=== PATIENT | female | born 1975 ===

== ENCOUNTER 2016-12-26 19:58 | Emergency (ER) | payer SELFPAY ==
[2016-12-26 20:08] VITALS: BP 112/74; PULSE 79; RESP 18; TEMP 99.1; O2SAT 99
--- NOTE | 2016-12-26 23:03 | ED PDOC ---
Arrival/HPI - General Chief Complaint: Trauma Time Seen by Provider: 12/26/16 22:33 Historian: Patient - History of Present Illness Narrative History of Present Illness (Text): 12/26/16 22:36 41-year-old female presents today with a 2-3 month history of left sided body pain . Patient denies trauma or injury. Patient denies fevers or chills. Patient denies difficulty breathing. Patient describes the pain as an achy pain throughout the entire left side of her body from the left side of the neck to the left upper and lower back. pt denies cough or SOB. no vomiting/diarrhea. no dizziness. pt states she has been taking advil at home with some relief. denies fever/chills. pt states pain radiates throughout the entire left side of her body from the left side of her neck into her hip. no abdominal pain. Time/Duration: Other (2-3 weeks) Symptom Onset: Gradual Symptom Course: Unchanged Quality: Aching Severity Level: 5 Past Medical History - Provider Review Nursing Documentation Reviewed: Yes - Travel History Have you recently traveled outside [place] w/in the past 3 mons?: No - Infectious Disease Hx of Infectious Diseases: None - Tetanus Immunization Tetanus Immunization: Unknown - Psychiatric Hx Substance Use: No Family/Social History - Physician Review Nursing Documentation Reviewed: Yes Family/Social History: Unknown Family HX Smoking Status: no Hx Alcohol Use: No Hx Substance Use: No Allergies/Home Meds Allergies/Adverse Reactions: Allergies No Known Allergies Allergy (Verified 12/26/16 20:09) Review of Systems - Review of Systems Constitutional: absent: Fatigue, Fevers Respiratory: absent: SOB, Cough Cardiovascular: absent: Chest Pain, Palpitations Gastrointestinal: absent: Abdominal Pain, Constipation, Diarrhea, Nausea, Vomiting Genitourinary Female: absent: Dysuria, Frequency, Hematuria Musculoskeletal: Back Pain, Neck Pain Skin: absent: Rash, Pruritis Neurological: absent: Headache, Dizziness Psychiatric: absent: Anxiety, Depression Physical Exam Vital Signs Reviewed: Yes Vital Signs Temp Pulse Resp BP Pulse Ox 12/26/16 20:02 99.1 F 79 18 112/74 99 Temperature: Afebrile Blood Pressure: Normal Pulse: Regular Respiratory Rate: Normal Appearance: Positive for: Well-Appearing, Non-Toxic, Comfortable Pain Distress: None Mental Status: Positive for: Alert and Oriented X 3 - Systems Exam Head: Present: Atraumatic Mouth: Present: Moist Mucous Membranes Neck: Present: Normal Range of Motion, Paraspinal Tenderness (+ left sided paraspinal tenderness), Trachea Midline. No: MIDLINE TENDERNESS Respiratory/Chest: Present: Clear to Auscultation, Good Air Exchange. No: Respiratory Distress, Accessory Muscle Use Cardiovascular: Present: Regular Rate and Rhythm, Normal S1, S2. No: Murmurs Abdomen: No: Tenderness Back: Present: Normal Inspection, Paraspinal Tenderness (+ left sided upper and lower back paraspinal tenderness. ). No: Midline Tenderness, Pain with Leg Raise Upper Extremity: Present: Normal Inspection, Normal ROM Lower Extremity: Present: Normal Inspection, Normal ROM Neurological: Present: GCS=15, Speech Normal Skin: Present: Warm, Dry, Normal Color. No: Rashes Psychiatric: Present: Alert, Oriented x 3 Medical Decision Making ED Course and Treatment: 12/27/16 00:06 patient is nontoxic well-appearing in no distress. with stable vitals. c/o 2-3 week history of entire left sided neck and back pain. without trauma or injury. cxr; wnl ua; + blood toradol and flexeril given pt reassessment; pt feeling better after medications; vitals stable. discussed results in depth with patient and advised f/u with PMD/clinic. advised patient of blood in urine. pt states last period recently ended. advised patient of possibility of kidney stone although since pain is throughout the body it is less likely. i advised immediate return if symptoms worsen,persist or if new symptoms develop. all information was translated using fumigator and sterilizer utility tractor operator #[id number] Patient verbalizes understanding of discharge instructions and need for immediate followup. all aspects of this case were discussed the attending of record. impression; back pain, neck pain Motrin every 6 hours as needed for pain Flexeril one tablet every 8 hours as needed for muscle spasms: May cause drowsiness Followup with the orthopedist within the next 2 days Followup with primary care physician within the next 2 days Return if symptoms worsen persist or if new symptoms develop 12/27/16 01:27 - Lab Interpretations Lab Results: Lab Results 12/26/16 22:45: Urine Color Yellow, Urine Appearance Clear, Urine pH 7.0, Ur Specific [place] 1.020, Urine Protein Negative, Urine Glucose (UA) Negative, Urine Ketones Negative, Urine Blood Trace-intact H, Urine Nitrate Negative, Urine Bilirubin Negative, Urine Urobilinogen 0.2, Ur Leukocyte Esterase Negative , Urine RBC 0 - 2, Urine WBC 0 - 2, Ur Epithelial Cells 0 - 2, Urine Bacteria Few - RAD Interpretation Radiology Orders: 12/26/16 22:38 CHEST TWO VIEWS (PA/LAT) [RAD] Stat - Medication Orders Current Medication Orders: Discontinued Medications Cyclobenzaprine HCl (Flexeril) 10 mg PO STAT STA Stop: 12/26/16 22:35 Last Admin: 12/26/16 22:49 Dose: 10 mg Ketorolac Tromethamine (Toradol) 60 mg IM STAT STA Stop: 12/26/16 22:35 Last Admin: 12/26/16 22:50 Dose: 60 mg Re-Assess: DANIELLA Pain Assessment Document 12/26/16 23:50 SC (Rec: 12/27/16 00:45 SC [id number]) Pain Reassessment Is this a pain reassessment? Yes Sleep Is patient sleeping during reassessment? No Presence of Pain Presence of Pain Yes Pain Scale Used Pain Scale Used Numeric Location Left, Right or Bilateral Left Pain Location Body Site Generalized Description Description Intermittent Intensity of Pain at present 3 Acceptable Level of Pain 3 Alleviating Factors/Management Medication Techniques Disposition/Present on Arrival - Present on Arrival Any Indicators Present on Arrival: No History of DVT/PE: No History of Uncontrolled Diabetes: No Urinary Catheter: No History of Decub. Ulcer: No History Surgical Site Infection Following: None - Disposition Have Diagnosis and Disposition been Completed?: Yes Diagnosis: Neck pain, Back pain Disposition: HOME/ ROUTINE Disposition Time: 01:27 Patient Plan: Discharge Condition: GOOD Discharge Instructions (ExitCare): Back Pain (ED) Additional Instructions: Motrin every 6 hours as needed for pain Flexeril one tablet every 8 hours as needed for muscle spasms: May cause drowsiness Followup with the orthopedist within the next 2 days Followup with primary care physician within the next 2 days Return if symptoms worsen persist or if new symptoms develop Prescriptions: Cyclobenzaprine [Cyclobenzaprine HCl] 10 mg PO Q8 #10 tab Ibuprofen [Motrin] 600 mg PO Q6H PRN #20 tab PRN Reason: pain/fever reduction Referrals: [facility] [place] [Outside] - Follow up with primary [facility] [place] [Outside] - Follow up with primary Forms: WORK NOTE
[2016-12-26 23:54] LABS: URINE BILIRUBIN NEGATIVE (NEGATIVE); URINE BLOOD TRACE-INTACT (NEGATIVE); URINE GLUCOSE (UA) NEGATIVE (NEGATIVE); URINE LEUKOCYTE ESTERASE NEGATIVE Leu/uL (NEGATIVE); URINE NITRATE NEGATIVE (NEGATIVE); URINE PROTEIN NEGATIVE mg/dL (<30 mg/dL); URINE UROBILINOGEN 0.2 E.U./dL (<1 E.U./dL)
[2016-12-26 23:55] LABS: URINE APPEARANCE CLEAR (CLEAR); URINE COLOR YELLOW (YELLOW)
[2016-12-27] LABS: URINE BACTERIA FEW (NEG); URINE EPITHELIAL CELLS 0 - 2 /hpf (0-5); URINE RBC 0 - 2 /hpf (0-2); URINE WBC 0 - 2 /hpf (0-6)
--- NOTE | 2016-12-27 07:36 | RAD ---
HISTORY: left upper body pain x 2-3months COMPARISON: No prior. TECHNIQUE: Chest PA and lateral FINDINGS: LUNGS: No active pulmonary disease. PLEURA: No significant pleural effusion identified. No pneumothorax apparent. CARDIOVASCULAR: Normal. OSSEOUS STRUCTURES: Inferior lumbar rightward convexity VISUALIZED UPPER ABDOMEN: Normal. OTHER FINDINGS: None. IMPRESSION: No active cardiopulmonary disease.
== END 2016-12-27 02:56 | disposition home or self-care (01) ==
LOC: ED 19:58
DX: M54.2 Cervicalgia (principal); M54.9 Dorsalgia, unspecified
CPT/HCPCS: 71020; 81001; 96372; 99282; J1885

== ENCOUNTER 2017-09-16 02:08 | Emergency (ER) | payer OTHER ==
[2017-09-16 02:23] VITALS: RESP 18; TEMP 98.5; O2SAT 99
[2017-09-16] MEDS ORDERED: Albuterol-Ipratrop 3 mg / 0.5 (3 ml) UD IH STA (02:45)
--- NOTE | 2017-09-16 02:45 | ED PDOC ---
Arrival/HPI - General Chief Complaint: Cough, Cold, Congestion Time Seen by Provider: 09/16/17 02:20 Historian: Patient - History of Present Illness Narrative History of Present Illness (Text): 09/16/17 02:37 Ainsley Resendiz is a 42 year old female, whose past medical history includes asthma, who presents to the Emergency department complaining of cough. Patient states she has been experiencing non-productive cough with associated congestion for the past few days. Patient states she was initially seen at [facility] [place] for same complaint a few days prior, had a full workup and Chest X-ray performed which were negative, and was discharged home on Zithromax. Patient completed the course of antibiotics, but states the cough has not resolved. Patient denies any fever, chills, chest pain, shortness of breath, nausea, headache, or any other complaints. Symptom Onset: Gradual Symptom Course: Unchanged Activities at Onset: Light Context: Home Past Medical History - Provider Review Nursing Documentation Reviewed: Yes - Infectious Disease Hx of Infectious Diseases: None - Tetanus Immunization Tetanus Immunization: Unknown - Psychiatric Hx Substance Use: No - Surgical History Hx Appendectomy: Yes Hx Section: Yes (x3) - Anesthesia Hx Anesthesia: Yes Hx Anesthesia Reactions: No Hx Malignant Hyperthermia: No Family/Social History - Physician Review Nursing Documentation Reviewed: Yes Family/Social History: Unknown Family HX Smoking Status: Never Smoked Hx Alcohol Use: No Hx Substance Use: No Allergies/Home Meds Allergies/Adverse Reactions: Allergies No Known Allergies Allergy (Verified 09/16/17 02:22) Review of Systems - Physician Review All systems were reviewed & negative as marked: Yes - Review of Systems Constitutional: Normal. absent: Fevers Eyes: Normal ENT: Other (+congestion) Respiratory: Cough Cardiovascular: Normal. absent: Chest Pain Gastrointestinal: Normal. absent: Abdominal Pain, Diarrhea, Nausea, Vomiting Genitourinary Female: Normal. absent: Dysuria, Frequency, Hematuria, Urine Output Changes Musculoskeletal: Normal. absent: Back Pain, Neck Pain Skin: Normal. absent: Rash Neurological: Normal. absent: Headache, Dizziness Endocrine: Normal Hemo/Lymphatic: Normal Psychiatric: Normal Physical Exam Vital Signs Reviewed: Yes Vital Signs Temp Pulse Resp BP Pulse Ox 09/16/17 04:08 79 18 130/93 H 99 09/16/17 02:18 98.5 F 87 18 128/87 99 Temperature: Afebrile Blood Pressure: Normal Pulse: Regular Respiratory Rate: Normal Appearance: Positive for: Well-Appearing, Non-Toxic, Comfortable Pain Distress: None Mental Status: Positive for: Alert and Oriented X 3 - Systems Exam Head: Present: Atraumatic, Normocephalic Pupils: Present: PERRL Extroacular Muscles: Present: EOMI Conjunctiva: Present: Normal Ears: Present: Normal, NORMAL TM, Normal Canal. No: Erythema, TM Bulging, Fluid , TM Perf Mouth: Present: Moist Mucous Membranes Pharnyx: Present: Normal. No: ERYTHEMA, EXUDATE, TONSILS ENLARGED, Peritonsilar Swelling, Uvular Deviation, Muffled/Hoarse Voice, Strider, Soft Palate/Uvular Edema Nose (External): Present: Atraumatic Nose (Internal): Present: Normal Inspection Neck: Present: Normal Range of Motion. No: Meningeal Signs, MIDLINE TENDERNESS , Paraspinal Tenderness Respiratory/Chest: Present: Wheezes. No: Respiratory Distress, Accessory Muscle Use Cardiovascular: Present: Regular Rate and Rhythm, Normal S1, S2. No: Murmurs Abdomen: No: Tenderness, Distention, Peritoneal Signs Back: Present: Normal Inspection Upper Extremity: Present: Normal Inspection. No: Cyanosis, Edema Lower Extremity: Present: Normal Inspection. No: Edema Neurological: Present: GCS=15, CN II-XII Intact, Speech Normal Skin: Present: Warm, Dry, Normal Color. No: Rashes Psychiatric: Present: Alert, Oriented x 3, Normal Insight, Normal Concentration Medical Decision Making ED Course and Treatment: 09/16/17 02:37 Impression: 42 year old female complaining of non-productive cough and congestion for past few days. Plan: -- Duoneb -- Reassess and disposition Progress Notes: 09/16/17 05:10 On re-evaluation, patient feels better and is in no acute distress. Patient is stable for discharge. Patient was instructed to follow up with physician or return if symptoms worsen or new concerning symptoms arise. - Medication Orders Current Medication Orders: Discontinued Medications Albuterol/Ipratropium (Duoneb 3 Mg/0.5 Mg (3 Ml) Ud) 3 ml IH ONCE STA Stop: 09/16/17 02:46 Last Admin: 09/16/17 02:49 Dose: 3 ml - Scribe Statement The provider has reviewed the documentation as recorded by the Freida Severino Provider Scribe Attestation: All medical record entries made by the Scribe were at my direction and personally dictated by me. I have reviewed the chart and agree that the record accurately reflects my personal performance of the history, physical exam, medical decision making, and the department course for this patient. I have also personally directed, reviewed, and agree with the discharge instructions and disposition. Disposition/Present on Arrival - Present on Arrival Any Indicators Present on Arrival: No History of DVT/PE: No History of Uncontrolled Diabetes: No Urinary Catheter: No History of Decub. Ulcer: No History Surgical Site Infection Following: None - Disposition Have Diagnosis and Disposition been Completed?: Yes Diagnosis: Asthma Disposition: HOME/ ROUTINE Disposition Time: 05:14 Patient Plan: Discharge Patient Problems: Current Active Problems Problem Status Onset Asthma Acute Condition: GOOD Discharge Instructions (ExitCare): Asthma, Adult (DC), How to Use Your Metered Dose Inhaler (Adults) Additional Instructions: Use medication as prescribed/follow up with your doctor this week Prescriptions: Albuterol HFA [Ventolin HFA 90 mcg/actuation (8 g)] 2 puff IH [id number] PRN #1 puff PRN Reason: Wheezing Referrals: PCP,NO [Primary Care Provider] - Follow up with primary Forms: [employer] ([place])
[2017-09-16] MEDS ORDERED: Albuterol-Ipratrop 3 mg / 0.5 (3 ml) UD ONE (02:47)
[2017-09-16 04:09] VITALS: BP 130/93; PULSE 79
== END 2017-09-16 05:32 | disposition home or self-care (01) ==
LOC: ED 02:08
DX: J45.909 Unspecified asthma, uncomplicated (principal)

== ENCOUNTER 2018-10-31 00:15 | Observation (INO) | payer OTHER ==
[2018-10-31] MEDS: Albuterol-Ipratrop 3 mg / 0.5 (3 ml) UD IH SCH ×6 (00:45→20:35)
--- NOTE | 2018-10-31 01:05 | ED PDOC ---
Arrival/HPI - General Historian: Patient, Spouse - History of Present Illness Narrative History of Present Illness (Text): 10/31/18 00:53 Pt is a 43 yo female with a PMH of asthma who presents to the ED complaining of wheezing for the past 3 weeks. Pt has been using her albuterol inhaler every hour. Pt reports clear sputum production and subjective fever for which she has taken Tylenol. Pt denies diarrhea, constipation. Time/Duration: < month Symptom Onset: Gradual Symptom Course: Worsening Quality: Tightness Severity Level: 9 Activities at Onset: Rest Context: Sitting <Xiang Cortes - Last Filed: 10/31/18 02:49> <Kevyn Garrido - Last Filed: 11/03/18 20:25> - General Chief Complaint: Shortness Of Breath Past Medical History - Infectious Disease Hx of Infectious Diseases: None - Tetanus Immunization Tetanus Immunization: Unknown - Psychiatric Hx Substance Use: No - Surgical History Hx Appendectomy: Yes Hx Section: Yes (x3) - Anesthesia Hx Anesthesia: Yes Hx Anesthesia Reactions: No Hx Malignant Hyperthermia: No <Xiang Cortes - Last Filed: 10/31/18 02:49> Family/Social History Family/Social History: No Known Family HX Smoking Status: Never Smoked Hx Alcohol Use: No Hx Substance Use: No <Xiang Cortes - Last Filed: 10/31/18 02:49> Allergies/Home Meds <Xiang Cortes - Last Filed: 10/31/18 02:49> <Kevyn Garrido - Last Filed: 11/03/18 20:25> Allergies/Adverse Reactions: Allergies No Known Allergies Allergy (Verified 10/31/18 00:24) Review of Systems - Review of Systems Constitutional: Fevers Eyes: Normal ENT: Normal Respiratory: SOB, Cough, Wheezing Cardiovascular: Chest Pain Gastrointestinal: Normal Musculoskeletal: Normal Skin: Normal Neurological: Normal Endocrine: Normal Hemo/Lymphatic: Normal Psychiatric: Normal <Xiang Cortes - Last Filed: 10/31/18 02:49> Physical Exam Vital Signs Reviewed: Yes Vital Signs Temp Pulse Resp BP Pulse Ox 10/31/18 00:28 98.9 F 100 H 20 133/85 95 Temperature: Afebrile Blood Pressure: Normal Pulse: Regular Respiratory Rate: Normal Appearance: Positive for: Well-Appearing Mental Status: Positive for: Alert and Oriented X 3 - Systems Exam Head: Present: Atraumatic, Normocephalic Pupils: Present: PERRL Extroacular Muscles: Present: EOMI Mouth: Present: Moist Mucous Membranes Respiratory/Chest: Present: Good Air Exchange, Wheezes. No: Clear to Auscultation Cardiovascular: Present: Regular Rate and Rhythm, Normal S1, S2 Abdomen: Present: Tenderness, Distention Upper Extremity: Present: Normal Inspection Lower Extremity: Present: Normal Inspection Neurological: Present: GCS=15, CN II-XII Intact Skin: Present: Warm, Dry Psychiatric: Present: Alert, Oriented x 3 <Xiang Cortes - Last Filed: 10/31/18 02:49> Vital Signs Temp Pulse Resp BP Pulse Ox 10/31/18 00:28 98.9 F 100 H 20 133/85 95 <Kevyn Garrido - Last Filed: 11/03/18 20:25> Medical Decision Making ED Course and Treatment: 10/31/18 01:07 CBC CMP duonebs solumedrol 125 CXR 10/31/18 02:48 Pt seen, examined, assessment and plan discussed with Dr Radhika Cortes PGY1 - RAD Interpretation Radiology Orders: 10/31/18 00:40 CXR [CHEST TWO VIEWS (PA/LAT)] [RAD] Stat - Medication Orders Current Medication Orders: Albuterol/Ipratropium (Duoneb 3 Mg/0.5 Mg (3 Ml) Ud) 3 ml IH Q15M SOPHY Stop: 10/31/18 01:16 Discontinued Medications Methylprednisolone (Solu-Medrol) 125 mg IVP STAT STA Stop: 10/31/18 00:43 <Xiang Cortes - Last Filed: 10/31/18 02:49> ED Course and Treatment: Impression: Pt seen and evaluated with medical assistant sound engineer audio control. Aware and agree with HPI, clinical findings, plan, and management. Pt, whose past medical history includes asthma, presented for asthma and subjectifve fever. Plan: -- Labs -- Duoneb -- Solu-medrol -- Reassess and disposition - RAD Interpretation Radiology Orders: 10/31/18 00:40 CXR [CHEST TWO VIEWS (PA/LAT)] [RAD] Stat - Medication Orders Current Medication Orders: Discontinued Medications Albuterol/Ipratropium (Duoneb 3 Mg/0.5 Mg (3 Ml) Ud) 3 ml IH Q15M SOPHY Stop: 10/31/18 01:16 Last Admin: 10/31/18 01:06 Dose: 3 ml Methylprednisolone (Solu-Medrol) 125 mg IVP STAT STA Stop: 10/31/18 00:43 Last Admin: 10/31/18 01:05 Dose: 125 mg IVP Administration Document 10/31/18 01:05 LILLIANA (Rec: 10/31/18 01:05 [id number]) Charges for Administration # of IVP Administrations 1 <Kevyn Garrido - Last Filed: 11/03/18 20:25> - PA / STUDENT FINANCE ADVISOR / Resident Statement / has reviewed & agrees with the documentation as recorded. NICHOLAS has examined the patient and agrees with the treatment plan. <Kevyn Garrido - Last Filed: 11/03/18 20:25> Disposition/Present on Arrival - Present on Arrival Any Indicators Present on Arrival: No History of DVT/PE: No History of Uncontrolled Diabetes: No Urinary Catheter: No History of Decub. Ulcer: No History Surgical Site Infection Following: None - Disposition Have Diagnosis and Disposition been Completed?: Yes Disposition Time: 02:44 Patient Plan: Admission <Xiang Cortes - Last Filed: 10/31/18 02:49> <Kevyn Garrido - Last Filed: 11/03/18 20:25> - Disposition Diagnosis: Asthma exacerbation Disposition: HOSPITALIZED Condition: FAIR
[2018-10-31 01:13] LABS: BASO # 0.15 K/mm3 (0.0-2.0); BASO % 1.5 % (0.0-3.0); EOS # 1.6 (0.0-0.7); EOS % 16.4 % (1.5-5.0); LYMPH # 2.5 (1.2-3.4); LYMPH % 25.4 % (22.0-35.0); MEAN CORPUSCULAR HEMOGLOBIN 23.5 pg (25.0-35.0); MEAN PLATELET VOLUME 9.3 fl (7.0-11.0); MONO % 10.4 % (1.0-6.0); RBC 4.68 10^6/uL (3.5-6.1); RED CELL DISTRIBUTION WIDTH 17.2 % (11.5-14.5)
[2018-10-31 01:25] LABS: MEAN CELL VOLUME 75.9 fl (80.0-105.0)
[2018-10-31 01:34] LABS: ALBUMIN 4.2 g/dL (3.0-4.8); ALT/SGPT 20 U/L (7-56); AST/SGOT 43 U/L (14-36); BLOOD UREA NITROGEN 13 mg/dL (7-21); CALCIUM 9.2 mg/dL (8.4-10.5); GFR NON-AFRICAN AMERICAN > 60
--- NOTE | 2018-10-31 02:55 | CP.PCM.HP ---
<Kvng To - Last Filed: 10/31/18 04:01> History of Present Illness - History of Present Illness History of Present Illness: Kvng To, PGY1 H&P for Dr. Tong cc: "wheezing x3 weeks" Patient is a 43 yo female with a PMH of asthma who presents to the ED complaining of wheezing for the past 3 weeks. Pt has been using her albuterol inhaler multiple times a day. She endorses frequent night time awakenings. She has symptoms almost daily. She has not been intubated before. She denies fever, chills, flu-like symptoms. She does have a non-productive cough. However, patient endorsed subjective fevers but never actually checked a temperature. She has no PMD at this time and takes no other home meds besides her albuterol. She has an associated headache as well that wraps around the head, not associated with photophobia or phonophobia. No sick contacts or recent travel. Denies lightheadedness, dizziness, n/v/d, bowel/bladder changes. Previously visited the ED for asthma on 09/2017. A full 12 point ROS was conducted and unremarkable except as stated above. PMD: none PMHx: Asthma PSHx: x3, appendectomy Meds: albuterol q6 prn Allergies: NKDA SocialHx: Denies smoking, drinking, drug use. Lives in [place] with . FamHx: non-contributory. Present on Admission - Present on Admission Any Indicators Present on Admission: No Review of Systems - Review of Systems All systems: reviewed and no additional remarkable complaints except (as per HPI) Past Patient History - Infectious Disease Hx of Infectious Diseases: None - Tetanus Immunizations Tetanus Immunization: Unknown - Past Social History Smoking Status: Never Smoked - PSYCHIATRIC Hx Substance Use: No - SURGICAL HISTORY Hx Appendectomy: Yes Hx Section: Yes (x3) - ANESTHESIA Hx Anesthesia: Yes Hx Anesthesia Reactions: No Hx Malignant Hyperthermia: No Meds Allergies/Adverse Reactions: Allergies Allergy/AdvReac Type Severity Reaction Status Date / Time No Known Allergies Allergy Verified 10/31/18 00:24 Physical Exam - Constitutional Appears: No Acute Distress - Head Exam Head Exam: ATRAUMATIC, NORMAL INSPECTION, NORMOCEPHALIC - Eye Exam Eye Exam: EOMI, Normal appearance Pupil Exam: NORMAL ACCOMODATION - ENT Exam ENT Exam: Mucous Membranes Moist - Respiratory Exam Respiratory Exam: Wheezes (Diffuse wheezing bilateral lungs ). absent: Accessory Muscle Use, Chest Wall Tenderness, Rales, Rhonchi - Cardiovascular Exam Cardiovascular Exam: RRR, +S1, +S2 - GI/Abdominal Exam GI & Abdominal Exam: Normal Bowel Sounds, Soft. absent: Distended, Firm, Guarding, Rebound, Rigid, Tenderness - Extremities Exam Extremities exam: Positive for: normal capillary refill, normal inspection, pedal pulses present - Back Exam Back exam: NORMAL INSPECTION - Neurological Exam Neurological exam: Alert, CN II-XII Intact, Oriented x3 - Psychiatric Exam Psychiatric exam: Normal Affect, Normal Mood - Skin Skin Exam: Dry, Intact, Normal Color, Warm Results - Vital Signs Recent Vital Signs: Last Vital Signs Temp 98.9 F 10/31/18 00:28 Pulse 100 H 10/31/18 00:28 Resp 20 10/31/18 00:28 BP 133/85 10/31/18 00:28 Pulse Ox 95 10/31/18 00:28 - Labs Result Diagrams: 10/31/18 01:04 10/31/18 01:04 Labs: Laboratory Results - last 24 hr 10/31/18 10/31/18 01:04 01:04 WBC 10.0 RBC 4.68 Hgb 11.0 L Hct 35.5 L MCV 75.9 L D MCH 23.5 L MCHC 31.0 RDW 17.2 H Plt Count 374 MPV 9.3 Neut % (Auto) 46.3 L Lymph % (Auto) 25.4 Daniels % (Auto) 10.4 H Eos % (Auto) 16.4 H Baso % (Auto) 1.5 Lymph # (Auto) 2.5 Daniels # (Auto) 1.0 H Eos # (Auto) 1.6 H Baso # (Auto) 0.15 Absolute Neuts (auto) 4.64 Sodium 141 Potassium 3.9 Chloride 105 Carbon Dioxide 25 Anion Gap 15 BUN 13 Creatinine 0.6 L Est GFR ( Amer) > 60 Est GFR (Non-Af Amer) > 60 Random Glucose 118 H Calcium 9.2 Total Bilirubin 0.2 AST 43 H D ALT 20 Alkaline Phosphatase 66 Total Protein 8.1 Albumin 4.2 Globulin 4.0 Albumin/Globulin Ratio 1.0 L Assessment & Plan - Assessment and Plan (Free Text) Assessment: Patient is a 43 yo female with a PMH of asthma who presents to the ED complaining of wheezing for the past 3 weeks. Patient will be admitted for asthma exacerbation. Plan: Asthma Exacerbation likely in the setting of severe persistent asthma - solumedrol 40mg IVP q12 - duonebs prn and standing - tylenol prn for associated headache - robitussin prn for cough - CXR: no infiltrate or consolidation - cbc shows eosinophilia - EKG: sinus tachy, HR 105 ppx: - pepcid - scd Diet: Regular Dispo: Will admit patient to med/surg. Monitor for improvement of asthma. Case was discussed and reviewed with Attending Physician, Dr. Tong <Farrah Tong - Last Filed: 10/31/18 04:16> Results - Vital Signs Recent Vital Signs: Last Vital Signs Temp 98.9 F 10/31/18 00:28 Pulse 104 H 10/31/18 03:10 Resp 24 10/31/18 03:12 BP 122/63 10/31/18 03:10 Pulse Ox 94 L 10/31/18 03:10 - Labs Result Diagrams: 10/31/18 01:04 10/31/18 01:04 Labs: Laboratory Results - last 24 hr 10/31/18 10/31/18 10/31/18 01:04 01:04 02:55 WBC 10.0 RBC 4.68 Hgb 11.0 L Hct 35.5 L MCV 75.9 L D MCH 23.5 L MCHC 31.0 RDW 17.2 H Plt Count 374 MPV 9.3 Neut % (Auto) 46.3 L Lymph % (Auto) 25.4 Daniels % (Auto) 10.4 H Eos % (Auto) 16.4 H Baso % (Auto) 1.5 Lymph # (Auto) 2.5 Daniels # (Auto) 1.0 H Eos # (Auto) 1.6 H Baso # (Auto) 0.15 Absolute Neuts (auto) 4.64 pCO2 30 L pO2 61.0 L HCO3 19.9 L ABG pH 7.43 ABG Total CO2 20.8 L ABG O2 Saturation 95.2 ABG O2 Content 13.5 L ABG Base Excess -3.6 L ABG Hemoglobin 10.4 L ABG Carboxyhemoglobin 1.8 H POC ABG HHb (Measured) 4.7 ABG Methemoglobin 1.2 ABG O2 Capacity 14.2 L Hgb O2 Saturation 92.3 L FiO2 21.0 Sodium 141 Potassium 3.9 Chloride 105 Carbon Dioxide 25 Anion Gap 15 BUN 13 Creatinine 0.6 L Est GFR ( Amer) > 60 Est GFR (Non-Af Amer) > 60 Random Glucose 118 H Calcium 9.2 Total Bilirubin 0.2 AST 43 H D ALT 20 Alkaline Phosphatase 66 Total Protein 8.1 Albumin 4.2 Globulin 4.0 Albumin/Globulin Ratio 1.0 L Attending/Attestation - Attestation I have personally seen and examined this patient.: Yes I have fully participated in the care of the patient.: Yes I have reviewed all pertinent clinical information: Yes
[2018-10-31 03:01] LABS: ARTERIAL BLOOD GAS HCO3 19.9 mmol/L (21-28); ARTERIAL BLOOD GAS HEMOGLOBIN 10.4 g/dL (11.7-17.4); ARTERIAL BLOOD GAS O2 CAPACITY 14.2 mL/dl (16-24); ARTERIAL BLOOD GAS O2 CONTENT 13.5 ML/dl (15-23); ARTERIAL BLOOD GAS O2 SAT 95.2 % (95-98); ARTERIAL BLOOD GAS PCO2 30 mm/Hg (35-45); ARTERIAL BLOOD GAS PH 7.43 (7.35-7.45); ARTERIAL BLOOD GAS TCO2 20.8 mmol.L (22-28)
[2018-10-31] MEDS ORDERED: Albuterol-Ipratrop 3 mg / 0.5 (3 ml) UD IH PRN (03:18)
[2018-10-31] MEDS: guaiFENesin 100 mg/5 ml Syrup UD PO PRN ×2 (03:38→10:25)
[2018-10-31 05:30] VITALS: BMI 25.8
[2018-10-31 07:41] LABS: BASO # 0.02 K/mm3 (0.0-2.0); BASO % 0.2 % (0.0-3.0); HEMOGLOBIN 10.3 g/dL (12.0-16.0); LYMPH # 0.5 (1.2-3.4); LYMPH % 5.1 % (22.0-35.0); MEAN CELL VOLUME 75.7 fl (80.0-105.0); MEAN CORPUSCULAR HEMOGLOBIN 23.1 pg (25.0-35.0); MEAN CORPUSCULAR HGB CONC 30.6 g/dl (31.0-37.0); MEAN PLATELET VOLUME 9.2 fl (7.0-11.0); MONO % 0.4 % (1.0-6.0); PLATELET COUNT 349 10^3/uL (120.0-450.0); RBC 4.45 10^6/uL (3.5-6.1); RED CELL DISTRIBUTION WIDTH 17.2 % (11.5-14.5); WHITE BLOOD COUNT 10.4 10^3/uL (4.5-11.0)
[2018-10-31 07:50] LABS: ALB/GLOB RATIO 1.1 (1.1-1.8); ALBUMIN 4.1 g/dL (3.0-4.8); ALT/SGPT 11 U/L (7-56); AST/SGOT 22 U/L (14-36); BLOOD UREA NITROGEN 11 mg/dL (7-21); CALCIUM 9.3 mg/dL (8.4-10.5); GFR NON-AFRICAN AMERICAN > 60
[2018-10-31 07:58] LABS: LYMPHOCYTE 5 % (22.0-35.0); NEUTROPHIL 95 % (50.0-70.0)
[2018-10-31 07:59] LABS: PLATELET ESTIMATE NORMAL (NORMAL)
--- NOTE | 2018-10-31 08:21 | RAD ---
Date of service: 10/31/2018 HISTORY: asthma exacerbation COMPARISON: No prior. TECHNIQUE: Chest PA and lateral views FINDINGS: LUNGS: No active pulmonary disease. PLEURA: No significant pleural effusion identified. No pneumothorax apparent. CARDIOVASCULAR: No aortic atherosclerotic calcification present. Normal cardiac size. No pulmonary vascular congestion. OSSEOUS STRUCTURES: No significant abnormalities. VISUALIZED UPPER ABDOMEN: Normal. OTHER FINDINGS: None. IMPRESSION: No active disease.
--- NOTE | 2018-10-31 10:04 | CARD ---
APPROVED REPORT Date of service: 10/31/2018 EKG Measurement Heart [id number] <Conclusion> Sinus tachycardia Otherwise normal ECG
[2018-10-31] MEDS: Enoxaparin 40 mg Syringe SC SCH (10:25)
[2018-10-31] MEDS: MethylPREDNISolone 40 mg Vial IVP SCH ×2 (10:25→21:06)
[2018-10-31] MEDS: Budesonide 0.5 mg/2 ml Inhal Susp UD IH SCH (20:35)
[2018-11-01] MEDS: Albuterol-Ipratrop 3 mg / 0.5 (3 ml) UD IH SCH ×4 (01:08→19:14)
[2018-11-01 06:49] LABS: HEMOGLOBIN 10.2 g/dL (12.0-16.0); MEAN CELL VOLUME 75.5 fl (80.0-105.0); MEAN CORPUSCULAR HEMOGLOBIN 22.9 pg (25.0-35.0); MEAN CORPUSCULAR HGB CONC 30.4 g/dl (31.0-37.0); MEAN PLATELET VOLUME 9.5 fl (7.0-11.0); RBC 4.45 10^6/uL (3.5-6.1); RED CELL DISTRIBUTION WIDTH 17.4 % (11.5-14.5); WHITE BLOOD COUNT 13.4 10^3/uL (4.5-11.0)
[2018-11-01] MEDS: Budesonide 0.5 mg/2 ml Inhal Susp UD IH SCH ×2 (07:22→19:14)
[2018-11-01 07:23] LABS: ALBUMIN 3.9 g/dL (3.0-4.8); ALT/SGPT 19 U/L (7-56); AST/SGOT 35 U/L (14-36); BLOOD UREA NITROGEN 10 mg/dL (7-21); CALCIUM 9.4 mg/dL (8.4-10.5); GFR NON-AFRICAN AMERICAN > 60
[2018-11-01] MEDS ORDERED: Benzocaine/Menthol (Cepacol) Lozenge MT PRN (08:57)
[2018-11-01] MEDS: MethylPREDNISolone 40 mg Vial IVP SCH ×2 (11:01→21:57)
[2018-11-01] MEDS: Enoxaparin 40 mg Syringe SC SCH (11:01)
--- NOTE | 2018-11-01 12:51 | CP.PCM.PN ---
<Michelle Harper - Last Filed: 11/01/18 12:45> Subjective - Date & Time of Evaluation Date of Evaluation: 11/01/18 Time of Evaluation: 12:46 - Subjective Subjective: Michelle Harper, PGY-1, Internal Medicine Progress Note for Dr. Villagomez Patient seen and evaluated at bedside. Patient had no acute overnight events. Patient reports shortness of breath, wheezing, and sore throat today though she reports shortness of breath and wheezing have improved. Patient was also noted to have nonproductive cough at bedside. 12-point ROS was unremarkable except for what was mentioned above. Objective - Vital Signs/Intake and Output Vital Signs (last 24 hours): Temp Pulse Resp BP Pulse Ox 98.1 F 102 H 18 95/58 L 95 11/01/18 06:00 11/01/18 06:00 11/01/18 06:00 11/01/18 06:00 11/01/18 06:00 Intake and Output: 11/01/18 11/01/18 06:59 18:59 Intake Total 260 Balance 260 - Medications Medications: Current Medications Acetaminophen (Tylenol 325mg Tab) 650 mg PO Q6H PRN PRN Reason: Headache Last Admin: 10/31/18 21:06 Dose: 650 mg Albuterol/Ipratropium (Duoneb 3 Mg/0.5 Mg (3 Ml) Ud) 3 ml IH Q4H PRN PRN Reason: Shortness of Breath Last Admin: 10/31/18 03:38 Dose: 3 ml Albuterol/Ipratropium (Duoneb 3 Mg/0.5 Mg (3 Ml) Ud) 3 ml IH [id number] [facility] Last Admin: 11/01/18 07:22 Dose: 3 ml Benzocaine/Menthol (Cepacol Sore Throat) 1 tommy MT Q2H PRN PRN Reason: Sore Throat Last Admin: 11/01/18 11:09 Dose: 1 tommy Benzonatate (Tessalon Perles) 100 mg PO TID [facility] Last Admin: 11/01/18 11:00 Dose: 100 mg Budesonide (Pulmicort Respules) 0.5 mg IH [id number] [facility] Last Admin: 11/01/18 07:22 Dose: 0.5 mg Enoxaparin Sodium (Lovenox) 40 mg SC DAILY [facility]; Protocol Last Admin: 11/01/18 11:01 Dose: 40 mg Famotidine (Pepcid) 20 mg PO 2200 SOPHY Last Admin: 10/31/18 21:06 Dose: 20 mg Guaifenesin (Robitussin) 100 mg PO Q6H PRN PRN Reason: Cough Last Admin: 10/31/18 10:25 Dose: 100 mg Methylprednisolone (Solu-Medrol) 40 mg IVP Q12 [facility] Last Admin: 11/01/18 11:01 Dose: 40 mg - Labs Labs: 11/01/18 06:30 11/01/18 06:30 - Constitutional Appears: Well, Non-toxic, No Acute Distress - Head Exam Head Exam: ATRAUMATIC, NORMAL INSPECTION, NORMOCEPHALIC - Eye Exam Eye Exam: EOMI Pupil Exam: PERRL - ENT Exam ENT Exam: Mucous Membranes Moist - Respiratory Exam Respiratory Exam: Wheezes, NORMAL BREATHING PATTERN - Cardiovascular Exam Cardiovascular Exam: Tachycardia, REGULAR RHYTHM, +S1, +S2. absent: Clicks, Gallop, Rubs - GI/Abdominal Exam GI & Abdominal Exam: Soft, Normal Bowel Sounds. absent: Distended, Firm, Guarding, Tenderness - Extremities Exam Extremities Exam: Full ROM, Normal Capillary Refill, Normal Inspection - Neurological Exam Neurological Exam: Alert, Awake, CN II-XII Intact, Oriented x3 - Psychiatric Exam Psychiatric exam: Normal Affect, Normal Mood - Skin Skin Exam: Dry, Intact, Normal Color Assessment and Plan - Assessment and Plan (Free Text) Assessment: 43 year old female with past medical history of asthma presented with chief complaint of wheezing and shortness of breath for one month. Patient was admitted for asthma exacerbation. Plan: Asthma exacerbation -CXR: shows no infiltrate or consolidation -Will taper solumedrol to 30 mg Q12 -Continue with duonebs SOPHY and PRN -Continue with pulmicort -Started tessalon perles and cepacol for sore throat -Continue robitussin for cough -Stop nasal cannula as patient is saturating well at this time GI prophylaxis: pepcid DVT prophylaxis: lovenox Patient plan discussed with Dr. Villagomez. <Georges Villagomez - Last Filed: 11/01/18 14:45> Objective - Vital Signs/Intake and Output Vital Signs (last 24 hours): Temp Pulse Resp BP Pulse Ox 98.2 F 90 16 119/77 93 L 11/01/18 14:00 11/01/18 14:00 11/01/18 14:00 11/01/18 14:00 11/01/18 14:00 Intake and Output: 11/01/18 11/01/18 06:59 18:59 Intake Total 260 Balance 260 - Medications Medications: Current Medications Acetaminophen (Tylenol 325mg Tab) 650 mg PO Q6H PRN PRN Reason: Headache Last Admin: 10/31/18 21:06 Dose: 650 mg Albuterol/Ipratropium (Duoneb 3 Mg/0.5 Mg (3 Ml) Ud) 3 ml IH Q4H PRN PRN Reason: Shortness of Breath Last Admin: 10/31/18 03:38 Dose: 3 ml Albuterol/Ipratropium (Duoneb 3 Mg/0.5 Mg (3 Ml) Ud) 3 ml IH [id number] [facility] Last Admin: 11/01/18 13:28 Dose: 3 ml Benzocaine/Menthol (Cepacol Sore Throat) 1 tommy MT Q2H PRN PRN Reason: Sore Throat Last Admin: 11/01/18 11:09 Dose: 1 tommy Benzonatate (Tessalon Perles) 100 mg PO TID [facility] Last Admin: 11/01/18 14:19 Dose: 100 mg Budesonide (Pulmicort Respules) 0.5 mg IH [id number] [facility] Last Admin: 11/01/18 07:22 Dose: 0.5 mg Enoxaparin Sodium (Lovenox) 40 mg SC DAILY [facility]; Protocol Last Admin: 11/01/18 11:01 Dose: 40 mg Famotidine (Pepcid) 20 mg PO 2200 [facility] Last Admin: 10/31/18 21:06 Dose: 20 mg Guaifenesin (Robitussin) 100 mg PO Q6H PRN PRN Reason: Cough Last Admin: 10/31/18 10:25 Dose: 100 mg Methylprednisolone (Solu-Medrol) 30 mg IVP Q12 [facility] - Labs Labs: 11/01/18 06:30 11/01/18 06:30 Attending/Attestation - Attestation I have personally seen and examined this patient.: Yes I have fully participated in the care of the patient.: Yes I have reviewed all pertinent clinical information, including history, physical exam and plan: Yes Notes (Text): 11/01/18 14:43 43 year old female with past medical history of asthma who presented with asthma exacerbation. Wheezing is slowly improving on iv steroids. Will begin steroids taper today. Continue with duonebs and pulmicort. Continue with robitussin for cough. Leukocytosis today noted; likely secondary to iv steroids. Continue to monitor. Possible d/c planning within 24 hrs if symptoms continue to improve. Georges Villagomez MD Hospitalist.
[2018-11-02] MEDS: Albuterol-Ipratrop 3 mg / 0.5 (3 ml) UD IH SCH ×2 (01:19→07:56)
[2018-11-02 07:27] LABS: HEMOGLOBIN 10.8 g/dL (12.0-16.0); MEAN CELL VOLUME 75.6 fl (80.0-105.0); MEAN CORPUSCULAR HEMOGLOBIN 22.9 pg (25.0-35.0); MEAN CORPUSCULAR HGB CONC 30.3 g/dl (31.0-37.0); MEAN PLATELET VOLUME 9.7 fl (7.0-11.0); RBC 4.72 10^6/uL (3.5-6.1); RED CELL DISTRIBUTION WIDTH 17.5 % (11.5-14.5); WHITE BLOOD COUNT 13.6 10^3/uL (4.5-11.0)
[2018-11-02 07:56] LABS: ALB/GLOB RATIO 1.1 (1.1-1.8); ALT/SGPT 15 U/L (7-56); AST/SGOT 29 U/L (14-36); BLOOD UREA NITROGEN 13 mg/dL (7-21); CALCIUM 9.4 mg/dL (8.4-10.5); GFR NON-AFRICAN AMERICAN > 60
[2018-11-02 07:58] VITALS: BP 104/65; PULSE 95; RESP 18; TEMP 98.1; O2SAT 96
[2018-11-02] MEDS: Budesonide 0.5 mg/2 ml Inhal Susp UD IH SCH (08:30)
[2018-11-02] MEDS: MethylPREDNISolone 40 mg Vial IVP SCH (10:51)
[2018-11-02] MEDS: Enoxaparin 40 mg Syringe SC SCH (10:51)
--- NOTE | 2018-11-02 12:18 | CP.PCM.DIS ---
<Michelle Harper - Last Filed: 11/02/18 12:08> Provider - Provider Date of Admission: 10/31/18 02:40 Attending physician: Georges Villagomez MD Time Spent in preparation of Discharge (in minutes): 45 Hospital Course - Lab Results Lab Results: Most Recent Lab Values WBC 13.6 10^3/uL (4.5-11.0) H 11/02/18 06:00 RBC 4.72 10^6/uL (3.5-6.1) 11/02/18 06:00 Hgb 10.8 g/dL (12.0-16.0) L 11/02/18 06:00 Hct 35.7 % (36.0-48.0) L 11/02/18 06:00 MCV 75.6 fl (80.0-105.0) L 11/02/18 06:00 MCH 22.9 pg (25.0-35.0) L 11/02/18 06:00 MCHC 30.3 g/dl (31.0-37.0) L 11/02/18 06:00 RDW 17.5 % (11.5-14.5) H 11/02/18 06:00 Plt Count 380 10^3/uL (120.0-450.0) 11/02/18 06:00 MPV 9.7 fl (7.0-11.0) 11/02/18 06:00 Neut % (Auto) 94.3 % (50.0-68.0) H 10/31/18 07:30 Lymph % (Auto) 5.1 % (22.0-35.0) L 10/31/18 07:30 [place] % (Auto) 0.4 % (1.0-6.0) L 10/31/18 07:30 Eos % (Auto) 0.0 % (1.5-5.0) L 10/31/18 07:30 Baso % (Auto) 0.2 % (0.0-3.0) 10/31/18 07:30 Lymph # (Auto) 0.5 (1.2-3.4) L 10/31/18 07:30 [place] # (Auto) 0.0 (0.1-0.6) L 10/31/18 07:30 Eos # (Auto) 0.0 (0.0-0.7) 10/31/18 07:30 Baso # (Auto) 0.02 K/mm3 (0.0-2.0) 10/31/18 07:30 Absolute Neuts (auto) 9.77 (1.4-6.5) H 10/31/18 07:30 Neutrophils % (Manual) 95 % (50.0-70.0) H 10/31/18 07:30 Lymphocytes % (Manual) 5 % (22.0-35.0) L 10/31/18 07:30 Monocytes % (Manual) TEST NOT PERFORMED 10/31/18 07:30 Platelet Evaluation Normal (NORMAL) 10/31/18 07:30 pCO2 30 mm/Hg (35-45) L 10/31/18 02:55 pO2 61.0 mm/Hg (80-100) L 10/31/18 02:55 HCO3 19.9 mmol/L (21-28) L 10/31/18 02:55 ABG pH 7.43 (7.35-7.45) 10/31/18 02:55 ABG Total CO2 20.8 mmol.L (22-28) L 10/31/18 02:55 ABG O2 Saturation 95.2 % (95-98) 10/31/18 02:55 ABG O2 Content 13.5 ML/dl (15-23) L 10/31/18 02:55 ABG Base Excess -3.6 mmol/L (-2.0-3.0) L 10/31/18 02:55 ABG Hemoglobin 10.4 g/dL (11.7-17.4) L 10/31/18 02:55 ABG Carboxyhemoglobin 1.8 % (0.5-1.5) H 10/31/18 02:55 POC ABG HHb (Measured) 4.7 % (0-5) 10/31/18 02:55 ABG Methemoglobin 1.2 % (0.0-3.0) 10/31/18 02:55 ABG O2 Capacity 14.2 mL/dl (16-24) L 10/31/18 02:55 Hgb O2 Saturation 92.3 % (95.0-98.0) L 10/31/18 02:55 FiO2 21.0 % 10/31/18 02:55 Sodium 139 mmol/L (132-148) 11/02/18 06:00 Potassium 4.5 mmol/L (3.6-5.0) 11/02/18 06:00 Chloride 108 mmol/L (98-107) H 11/02/18 06:00 Carbon Dioxide 22 mmol/L (21-33) 11/02/18 06:00 Anion Gap 13 (10-20) 11/02/18 06:00 BUN 13 mg/dL (7-21) 11/02/18 06:00 Creatinine 0.6 mg/dl (0.7-1.2) L 11/02/18 06:00 Est GFR ( Amer) > 60 11/02/18 06:00 Est GFR (Non-Af Amer) > 60 11/02/18 06:00 Random Glucose 127 mg/dL (70-110) H 11/02/18 06:00 Calcium 9.4 mg/dL (8.4-10.5) 11/02/18 06:00 Total Bilirubin 0.3 mg/dL (0.2-1.3) 11/02/18 06:00 AST 29 U/L (14-36) 11/02/18 06:00 ALT 15 U/L (7-56) 11/02/18 06:00 Alkaline Phosphatase 59 U/L (38-126) 11/02/18 06:00 Total Protein 7.7 g/dL (5.8-8.3) 11/02/18 06:00 Albumin 4.0 g/dL (3.0-4.8) 11/02/18 06:00 Globulin 3.7 gm/dL 11/02/18 06:00 Albumin/Globulin Ratio 1.1 (1.1-1.8) 11/02/18 06:00 - Hospital Course Hospital Course: Michelle Harper, PGY-1, Internal Medicine Discharge Summary for Dr. Villagomez 43 year old female with past medical history of asthma presented with wheezing for 1 month. Patient additionally reported cough with yellow sputum. In addition, she had been having body aches and subjective fever. She reports using albuterol inhaler multiple times a day without complete relief. Over the past few days, she had had multiple exacerbations during the day as well as during the nighttime. However, she reported prior to these exacerbations, she was having symptoms 2-3 times a week. Upon admission, Chest X ray showed no acute infiltrates or effusions. Patient was afebrile throughout this admission. Patient had no leukocytosis on admission. ABG on admission showed pH: 7.43, pO2 of 61, and pCO2 of 30. Patient was given solumedrol 125 mg in the ED and subsequently started on solumedrol 40 mg Q12. Patient was started on duonebs SOPHY and PRN as well as robitussin for cough. The next day, pulmicort was added as patient's shortness of breath and wheezing had not improved. In addition, patient had sore throat so tessalon perles and cepacol were added. The following day, patient's wheezing improved on exam and today, patient was found to be stable and ready for discharge. Patient has mild leukocytosis but this is likely due to steroid use on this admission. Patient was found to be stable and ready for discharge. Patient was told to follow up with PCP within 3-5 days. Patient was told to take all home medications as prescribed. Patient was told to return to the emergency department if she had any new or concerning symptoms. This is a brief summary of the events that transpired at the hospital. For more information, please refer to hospital documentation Discharge diagnoses Asthma exacerbation - Date & Time of H&P Date of H&P: 10/31/18 Time of H&P: 02:49 Discharge Exam - Head Exam Head Exam: ATRAUMATIC, NORMAL INSPECTION, NORMOCEPHALIC - Eye Exam Eye Exam: EOMI Pupil Exam: PERRL - Respiratory Exam Respiratory Exam: Clear to PA & Lateral, NORMAL BREATHING PATTERN. absent: Rales, Rhonchi, Wheezes - Cardiovascular Exam Cardiovascular Exam: REGULAR RHYTHM, RRR, +S1, +S2. absent: Clicks, Gallop, Rubs - GI/Abdominal Exam GI & Abdominal Exam: Normal Bowel Sounds, Soft. absent: Distended, Firm, Guarding, Tenderness - Extremities Exam Extremities exam: full ROM, normal capillary refill, normal inspection - Neurological Exam Neurological exam: Alert, CN II-XII Intact, Normal Gait, Oriented x3 - Psychiatric Exam Psychiatric exam: Normal Affect, Normal Mood - Skin Skin Exam: Dry, Intact, Normal Color Discharge Plan - Discharge Medications Prescriptions: Albuterol HFA [Ventolin HFA 90 mcg/actuation (8 g)] 2 puff IH [id number] PRN #1 puff PRN Reason: Wheezing Benzocaine/Menthol [Cepacol Sore Throat] 1 tommy MT Q2H PRN #10 tommy PRN Reason: Sore Throat Budesonide [Pulmicort Respules] 0.5 mg IH Q12 30 Days #1 neb Methylprednisolone [Medrol Dose Pack (21 tabs)] 4 mg PO DAILY #21 mg - Follow Up Plan Condition: FAIR Disposition: HOME/ ROUTINE Instructions: Asthma in Adults, Wheezing Additional Instructions: Please follow up with primary care doctor within 3-5 days. Please take all inhalers as prescribed. Please take all medications as prescribed. Please return to the emergency department if you have any new or concerning symptoms. Referrals: Nila Sims MD [Medical Doctor] - <Georges Villagomez - Last Filed: 11/02/18 12:20> Provider - Provider Date of Admission: 10/31/18 02:40 Attending physician: Georges Villagomez MD Hospital Course - Lab Results Lab Results: Most Recent Lab Values WBC 13.6 10^3/uL (4.5-11.0) H 11/02/18 06:00 RBC 4.72 10^6/uL (3.5-6.1) 11/02/18 06:00 Hgb 10.8 g/dL (12.0-16.0) L 11/02/18 06:00 Hct 35.7 % (36.0-48.0) L 11/02/18 06:00 MCV 75.6 fl (80.0-105.0) L 11/02/18 06:00 MCH 22.9 pg (25.0-35.0) L 11/02/18 06:00 MCHC 30.3 g/dl (31.0-37.0) L 11/02/18 06:00 RDW 17.5 % (11.5-14.5) H 11/02/18 06:00 Plt Count 380 10^3/uL (120.0-450.0) 11/02/18 06:00 MPV 9.7 fl (7.0-11.0) 11/02/18 06:00 Neut % (Auto) 94.3 % (50.0-68.0) H 10/31/18 07:30 Lymph % (Auto) 5.1 % (22.0-35.0) L 10/31/18 07:30 [place] % (Auto) 0.4 % (1.0-6.0) L 10/31/18 07:30 Eos % (Auto) 0.0 % (1.5-5.0) L 10/31/18 07:30 Baso % (Auto) 0.2 % (0.0-3.0) 10/31/18 07:30 Lymph # (Auto) 0.5 (1.2-3.4) L 10/31/18 07:30 [place] # (Auto) 0.0 (0.1-0.6) L 10/31/18 07:30 Eos # (Auto) 0.0 (0.0-0.7) 10/31/18 07:30 Baso # (Auto) 0.02 K/mm3 (0.0-2.0) 10/31/18 07:30 Absolute Neuts (auto) 9.77 (1.4-6.5) H 10/31/18 07:30 Neutrophils % (Manual) 95 % (50.0-70.0) H 10/31/18 07:30 Lymphocytes % (Manual) 5 % (22.0-35.0) L 10/31/18 07:30 Monocytes % (Manual) TEST NOT PERFORMED 10/31/18 07:30 Platelet Evaluation Normal (NORMAL) 10/31/18 07:30 pCO2 30 mm/Hg (35-45) L 10/31/18 02:55 pO2 61.0 mm/Hg (80-100) L 10/31/18 02:55 HCO3 19.9 mmol/L (21-28) L 10/31/18 02:55 ABG pH 7.43 (7.35-7.45) 10/31/18 02:55 ABG Total CO2 20.8 mmol.L (22-28) L 10/31/18 02:55 ABG O2 Saturation 95.2 % (95-98) 10/31/18 02:55 ABG O2 Content 13.5 ML/dl (15-23) L 10/31/18 02:55 ABG Base Excess -3.6 mmol/L (-2.0-3.0) L 10/31/18 02:55 ABG Hemoglobin 10.4 g/dL (11.7-17.4) L 10/31/18 02:55 ABG Carboxyhemoglobin 1.8 % (0.5-1.5) H 10/31/18 02:55 POC ABG HHb (Measured) 4.7 % (0-5) 10/31/18 02:55 ABG Methemoglobin 1.2 % (0.0-3.0) 10/31/18 02:55 ABG O2 Capacity 14.2 mL/dl (16-24) L 10/31/18 02:55 Hgb O2 Saturation 92.3 % (95.0-98.0) L 10/31/18 02:55 FiO2 21.0 % 10/31/18 02:55 Sodium 139 mmol/L (132-148) 11/02/18 06:00 Potassium 4.5 mmol/L (3.6-5.0) 11/02/18 06:00 Chloride 108 mmol/L (98-107) H 11/02/18 06:00 Carbon Dioxide 22 mmol/L (21-33) 11/02/18 06:00 Anion Gap 13 (10-20) 11/02/18 06:00 BUN 13 mg/dL (7-21) 11/02/18 06:00 Creatinine 0.6 mg/dl (0.7-1.2) L 11/02/18 06:00 Est GFR ( Amer) > 60 11/02/18 06:00 Est GFR (Non-Af Amer) > 60 11/02/18 06:00 Random Glucose 127 mg/dL (70-110) H 11/02/18 06:00 Calcium 9.4 mg/dL (8.4-10.5) 11/02/18 06:00 Total Bilirubin 0.3 mg/dL (0.2-1.3) 11/02/18 06:00 AST 29 U/L (14-36) 11/02/18 06:00 ALT 15 U/L (7-56) 11/02/18 06:00 Alkaline Phosphatase 59 U/L (38-126) 11/02/18 06:00 Total Protein 7.7 g/dL (5.8-8.3) 11/02/18 06:00 Albumin 4.0 g/dL (3.0-4.8) 11/02/18 06:00 Globulin 3.7 gm/dL 11/02/18 06:00 Albumin/Globulin Ratio 1.1 (1.1-1.8) 11/02/18 06:00 Attending/Attestation - Attestation I have personally seen and examined this patient.: Yes I have fully participated in the care of the patient.: Yes I have reviewed all pertinent clinical information, including history, physical exam and plan: Yes Notes (Text): 11/02/18 12:19 43 year old female with past medical history of asthma who presented with asthma exacerbation. She was started on duonebs and iv steroids with improvement of symptoms. Her steroids were being tapered. Leukocytosis likely secondary to steroids. Cough and wheezing has improved. Patient will be discharged home today to follow up at [email or web address]]. Discharged on medrol dosepack and albuterol prn. Georges Villagomez MD Hospitalist.
== END 2018-11-02 14:27 | disposition home or self-care (01) ==
LOC: ED 00:15 → ERH 02:40 → 5RNO 04:19
PROVIDERS: ADMIT Internal Medicine; ATTEND Internal Medicine
DX: J45.901 Unspecified asthma with (acute) exacerbation (principal); D72.829 Elevated white blood cell count, unspecified
CPT/HCPCS: 36415; 71046; 80053; 81025; 82803; 85025; 85027; 93005; 94640; 94760; 96372; 96374; 96376; 99285; G0378; J1650; J2920; J2930